=== PATIENT | female | born 1950 | race Caucasian/White ===

== ENCOUNTER 2017-05-01 07:45 | Day surgery (SDC) | payer MEDICARE, BC ==
[2017-05-01] MEDS ORDERED: Lactated Ringers 1,000 ML IV SCH (08:00)
[2017-05-01] MEDS ORDERED: Sodium Chloride 0.9% 10 ML Syringe FLUSH PRN (08:00)
[2017-05-01] MEDS ORDERED: Propofol 200 MG/20 ML SDV ONE ×3 (08:07→09:19)
[2017-05-01] MEDS ORDERED: Glycopyrrolate 0.2 MG/ML SDV ONE (09:00)
--- NOTE | 2017-05-01 09:07 | PCM.PN ---
- General Info Date of Service: 05/01/17 - Review of Systems Systems Review Comment:: 66-year-old female here for EGD and colonoscopy. The patient has a history of a previous right hemicolectomy for carcinoma. She has also been feeling upper abdominal pressure feeling. She is medically stable to proceed today with no significant change since her recent history and physical which is reviewed. I have discussed the proposed EGD and colonoscopy with the patient. She understands indications and risks and agrees to proceed. - Patient Data Vitals - most recent: Last Vital Signs Temp 97.6 F 05/01/17 08:02 Pulse 73 05/01/17 08:02 Resp 12 05/01/17 08:02 BP 133/75 05/01/17 08:02 Pulse Ox 99 05/01/17 08:02 Weight - most recent: 78.018 kg Med Orders - Current: Current Medications Lactated Ringer's (Ringers, Lactated) 1,000 mls @ 125 mls/hr IV ASDIRECTED JOHN Last Admin: 05/01/17 08:42 Dose: 125 mls/hr Sodium Chloride (Saline Flush) 10 ml FLUSH ASDIRECTED PRN PRN Reason: Keep Vein Open Discontinued Medications Propofol (Diprivan 20 Ml) Confirm Administered Dose 400 mg .ROUTE .STK-MED ONE Stop: 05/01/17 08:08 - Problem List Review Problem List Initiated/Reviewed/Updated: Yes - Assessment Assessment:: Upper abdominal fullness History of colon cancer - Plan Plan:: EGD and colonoscopy
--- NOTE | 2017-05-01 09:53 | PCM.OPNOTE ---
- General Post-Op/Procedure Note Date of Surgery/Procedure: 05/01/17 Operative Procedure(s): EGD with Biopsy and Colonoscopy Findings: Normal appearing upper endoscopy Moderate Sigmoid Diverticulosis Healthy appearing ileo-colonic anastomosis Pre Op Diagnosis: Upper Abdominal Fullness. History of Colon Cancer Post-Op Diagnosis: Normal Upper Endoscopy. Diverticulosis. Post op Colon Anesthesia Technique: MAC Primary Surgeon: Joss Navarro Pathology: Gastric Antrum to R/O H. Pylori Output, Urine Amount: 0 EBL in mLs: 2 Complications: None Condition: Good Free Text/Narrative:: Intake & Output 04/30/17 05/01/17 05/01/17 22:59 06:59 14:59 Intake Total 900 Balance 900
--- NOTE | 2017-05-01 11:34 | OR ---
Date of Procedure: 05/01/2017 PREOPERATIVE DIAGNOSES: 1. Upper abdominal fullness. 2. History of colon cancer. POSTOPERATIVE DIAGNOSES: 1. Normal upper endoscopy. 2. Sigmoid diverticulosis. 3. Postoperative colon. OPERATION PERFORMED: Esophagogastroduodenoscopy with biopsy and colonoscopy. INDICATIONS FOR SURGERY: This 66-year-old female, who has had a history of right hemicolectomy for carcinoma comes for surveillance colonoscopy because of her colon cancer. She has also been having persistent symptoms of upper abdominal fullness and upper endoscopy is planned to evaluate this. FINDINGS: On upper endoscopy, the patient's esophagus, stomach, and duodenum appeared normal. No ulcerations or visible signs of inflammation were seen. No stricturing was noted. On colonoscopy, the patient has a [id number] degree of sigmoid diverticulosis. There is some tortuosity through this area, but no stenosis and no evidence of acute inflammation. In the proximal transverse colon, there is an anastomosis, which was widely patent and appears normal. PROCEDURE IN DETAIL: The patient was taken to the operating room. She was given intravenous sedation and with her in the left lateral decubitus position, the esophagus was intubated via a mouth gag with the Olympus gastroscope. The scope was then carefully advanced under direct visualization down through the esophagus, stomach, and into the duodenum where examination to the 3rd portion was performed. The duodenum was examined and found to appear normal. The scope was withdrawn back into the stomach where full examination, including retroflexed examination of the fundus was carried out and the gastric lining appeared normal. Biopsies of the antrum are taken to rule out H. pylori. The GE junction and the esophagus was then re-examined as the scope was withdrawn. Attention was then turned to colonoscopy. Digital rectal exam was performed showing no rectal masses. The Olympus colonoscope was inserted into the rectum where retroflexed examination of the rectal canal is performed. The scope was then carefully advanced under direct visualization through the entire length of the remaining colon to the level of the anastomosis. The anastomosis was viewed and appeared normal with no lesions or signs of narrowing or complication. The scope was then slowly withdrawn sequentially re-examining the colonic segments until the entire colon and rectum had been fully examined. The scope was removed and the patient was taken from the operating room in satisfactory condition. ESTIMATED BLOOD LOSS: 2 mL. COMPLICATIONS: None. PROGNOSIS: Good. MG Navarro MD /[id number]
[2017-05-01 14:05] VITALS: BP 121/60
== END 2017-05-01 11:34 | disposition home or self-care (01) ==
LOC: LL.SDS 07:45
PROVIDERS: ATTEND Surgery
DX: Z12.11 Encounter for screening for malignant neoplasm of colon (principal); K31.9 Disease of stomach and duodenum, unspecified; K57.30 Diverticulosis of large intestine without perforation or abscess without bleeding; K21.9 Gastro-esophageal reflux disease without esophagitis; Z85.038 Personal history of other malignant neoplasm of large intestine; Z90.49 Acquired absence of other specified parts of digestive tract; Z90.710 Acquired absence of both cervix and uterus; Z98.890 Other specified postprocedural states
CPT/HCPCS: 00740; 43239; G0105; J2704; J7120; 88305; 88342

== ENCOUNTER 2022-08-01 07:26 | Day surgery (SDC) | payer MEDICARE, BC ==
[2022-08-01] MEDS ORDERED: Sodium Chloride 0.9% 10 ML Syringe FLUSH PRN (07:30)
[2022-08-01] MEDS ORDERED: Lactated Ringers 1,000 ML IV SCH (07:30)
[2022-08-01] MEDS ORDERED: Midazolam 1 MG/ML 2 ML SDV ONE (07:35)
[2022-08-01] MEDS ORDERED: Propofol 200 MG/20 ML SDV ONE (07:36)
[2022-08-01 12:35] VITALS: BP 99/47; PULSE 61
== END 2022-08-01 10:10 | disposition home or self-care (01) ==
LOC: LL.SDS 07:26
PROVIDERS: ATTEND Surgery
DX: Z12.11 Encounter for screening for malignant neoplasm of colon (principal); K57.30 Diverticulosis of large intestine without perforation or abscess without bleeding; K64.8 Other hemorrhoids; K64.4 Residual hemorrhoidal skin tags; Z98.0 Intestinal bypass and anastomosis status; Z85.038 Personal history of other malignant neoplasm of large intestine; E78.2 Mixed hyperlipidemia; F51.01 Primary insomnia; M81.0 Age-related osteoporosis without current pathological fracture; Z79.899 Other long term (current) drug therapy; Z88.0 Allergy status to penicillin; Z91.030 Bee allergy status
CPT/HCPCS: G0105; J2250; J2704; J7120